=== PATIENT | male | born 1950 | race Caucasian/White ===

== ENCOUNTER 2024-01-13 10:29 | Day surgery (SDC) | payer MEDICARE, SELFPAY ==
[2024-01-07 11:11] VITALS: BMI 30.7
--- NOTE | 2024-01-12 12:07 | HO.ANESPROP2 ---
Documented by User: Kary Harper NP 01/12/24 12:08 HPI - Anesthesia Eval Consult details Narrative: 73yo M for Right Medial Rectus Eye Muscle Recession,right Inferior Oblique Medically optimized for surgery per PCP [facility] Past Medical History Medical History (Updated 01/07/24 @ 11:08 by Ansley Lomeli RN) Tubular adenoma Back pain Renal cyst Calculus of left kidney Obesity BPH (benign prostatic hyperplasia) Hyperlipidemia HTN (hypertension) Surgical History Surgical History (Updated 01/13/24 @ 10:41 by Janki Naylor RN) [place] teeth extracted H/O colonoscopy Social History Social History Patient Tobacco Use Status: Never used Tobacco Use of substances other than those prescribed or required for medical reasons: No Are you DNR?: No Advance Directives: No Advance Directives Information Provided: Yes Advance Directives on File: No Recently lost weight without trying: No Nutrition Risks: No Nutritional Risk Meds Allergies Allergy/AdvReac Type Severity Reaction Status Date / Time No Known Allergies Allergy Verified 01/07/24 11:09 Home Medications ?Medication ?Instructions ?Recorded ?Confirmed ?Last Taken ?Type diltiazem HCl 120 mg 120 mg PO DAILY 01/07/24 01/07/24 Unknown History capsule,extended release 24 hr doxazosin 4 mg tablet 4 mg PO BEDTIME 01/07/24 01/07/24 Unknown History losartan 25 mg tablet 25 mg PO DAILY 01/07/24 01/07/24 Unknown History pravastatin 40 mg tablet 40 mg PO DAILY 01/07/24 01/07/24 Unknown History verapamil 120 mg 24 hr 120 mg PO DAILY 01/07/24 01/07/24 Unknown History capsule,extended release Exam Height,Weight and Vital Signs: Height 5 ft 10 in Weight 97.069 kg Assessment and Plan Assessment Anesthesia Assessment: Chart Reviewed Documented by User: Hayley Ndiaye MD 01/13/24 12:13 [facility] Past Medical History Medical History (Updated 01/07/24 @ 11:08 by Ansley Lomeli RN) Tubular adenoma Back pain Renal cyst Calculus of left kidney Obesity BPH (benign prostatic hyperplasia) Hyperlipidemia HTN (hypertension) Family History Family history of problems with anesthesia: No Surgical History Surgical History (Updated 01/13/24 @ 10:41 by Janki Naylor RN) [place] teeth extracted H/O colonoscopy History of Problems with Anesthesia: No Social History Social History Patient Tobacco Use Status: Never used Tobacco Use of substances other than those prescribed or required for medical reasons: No Are you DNR?: No Advance Directives: No Advance Directives Information Provided: Yes Advance Directives on File: No Recently lost weight without trying: No Nutrition Risks: No Nutritional Risk Meds Allergies Allergy/AdvReac Type Severity Reaction Status Date / Time No Known Allergies Allergy Verified 01/07/24 11:09 Home Medications ?Medication ?Instructions ?Recorded ?Confirmed ?Last Taken ?Type diltiazem HCl 120 mg 120 mg PO DAILY 01/07/24 01/07/24 Unknown History capsule,extended release 24 hr doxazosin 4 mg tablet 4 mg PO BEDTIME 01/07/24 01/07/24 Unknown History losartan 25 mg tablet 25 mg PO DAILY 01/07/24 01/07/24 Unknown History pravastatin 40 mg tablet 40 mg PO DAILY 01/07/24 01/07/24 Unknown History verapamil 120 mg 24 hr 120 mg PO DAILY 01/07/24 01/07/24 Unknown History capsule,extended release Exam Airway Mallampati Class: II (upper bridge, lower root canal) TM Dist: >3cm Neck ROM: Full Heart: rrr Lungs: cta Assessment and Plan Assessment Anesthesia Assessment: Anesthesia Plan Discussed Final Anesthetic Review Family History of Problems with Anesthesia: No History of Problems with Anesthesia: No NPO: Yes ASA Class: II Final Preanesthetic Review: No Changes in Pt Med Stat, Meds/Allgs Chart Reviewed and Consent Obtained/Reviewed Patient Risk: Low Procedure Risk: Low Anesthetic Plan Anesthetic Plan: GA Disposition: Standard PACU
[2024-01-13] VITALS (7 sets, daily range): BP systolic 116–146; BP diastolic 52–84; PULSE 74–113; RESP 16; TEMP 36.1–36.3; O2SAT 95–99; BMI 30.4
[2024-01-13] MEDS: Lactated Ringers 1,000 ML 100 ML IVCONT (10:59)
--- NOTE | 2024-01-13 13:46 | HO.OPHTHAL ---
Ophthalmology Operative Note Date of Service: 01/13/24 Narrative: Diagnosis right superior oblique palsy. Procedures 1. Recession of right medial rectus muscle 4 mm 2. Recession of right inferior oblique muscle. Surgeon Dr. Mota. Anesthesia general. Complications none. The patient was brought to the operating room placed under general anesthesia. The right eye was prepped and draped in the usual sterile ophthalmic fashion. A lid speculum was placed in the eye and a peritomy was created around the medial rectus muscle. The muscle was disinserted the globe and reattached to a position 4 mm behind the original insertion. Conjunctiva was closed with interrupted Vicryl sutures. a peritomy was then created around the 7:30 position and the inferior and lateral rectus muscles were placed on large muscle hooks. The inferior oblique was carefully identified and grasped with 2 small tenotomy hooks. It was transferred to the large muscle hooks and grasped near its insertion with a curved mosquito. The muscle was then disinserted from the globe and reattached to a position 4 mm posterior to mm temporal to the temporal insertion of the inferior rectus muscle. Conjunctiva was closed with interrupted Vicryl sutures. The patient was then awoken from general anesthesia and discharged to postoperative recovery in good condition.
== END 2024-01-13 14:47 | disposition home or self-care (01) ==
PROVIDERS: Visit Provider Ophthalmology
PROC: (CPT 67311; principal; 2024-01-13 11:30)
DX: H49.11 Fourth [trochlear] nerve palsy, right eye (principal); I10 Essential (primary) hypertension; E78.2 Mixed hyperlipidemia; N40.0 Benign prostatic hyperplasia without lower urinary tract symptoms; E66.9 Obesity, unspecified; Z68.30 Body mass index [BMI] 30.0-30.9, adult; Z79.899 Other long term (current) drug therapy
CPT/HCPCS: 67311; 67314; J1100; J2250; J2405; J2704; J3010